=== PATIENT | female | born 1970 | race Caucasian/White ===

== ENCOUNTER 2018-07-10 13:21 | Emergency (ER) | payer OTHER ==
[~2018-07-10] VITALS: Ht 172.7 cm; Wt 102.1 kg
[2018-07-10 16:13] LABS: ABSOLUTE NEUTROPHILS 4.4 thou/uL (1.4-8.2); BASOPHILS 0.7 % (0.0-2.0); EOSINOPHILS 3.1 % (0.0-3.0); HEMATOCRIT 32.3 % (37.0-47.0); HEMOGLOBIN 11.1 gm/dL (12.0-15.0); LYMPHOCYTES 31.1 % (24.0-44.0); MCH 31.3 pg (26.0-34.0); MCHC 34.4 g/dL (28.0-37.0); MONOCYTES 8.2 % (1.0-8.0); PLATELET COUNT 253 thou/uL (150-400); POLYS 56.9 % (36.0-66.0); RBC 3.55 mil/uL (4.20-5.00); RDW 13.3 % (10.5-14.5); WBC 7.8 thou/uL (4.0-11.0)
[2018-07-10 16:22] LABS: CALCIUM 9.2 mg/dL (8.5-10.1); CREATININE 1.4 mg/dL (0.6-1.0)
[2018-07-10 16:29] LABS: ALBUMIN 3.3 g/dL (3.4-5.0); TOTAL BILIRUBIN 0.1 mg/dL (<0.1-1.0); TOTAL PROTEIN 6.5 g/dL (6.4-8.2)
[2018-07-10] MEDS ORDERED: ZANTAC 150MG T150 MG PO (16:32)
[2018-07-10] MEDS ORDERED: TRAMADOL 50 MG50 MG PO (16:33)
[2018-07-10] MEDS ORDERED: LOPERAMIDE 2 MG2 M1 PO (16:33)
[2018-07-10] MEDS ORDERED: TRAZODONE HCL100 MG PO (16:33)
[2018-07-10] MEDS ORDERED: PHENERGAN 25 MG25 M1 PO (16:34)
[2018-07-10] MEDS ORDERED: ROXICODONE5 M2 PO (17:55)
[2018-07-10 18:25] VITALS: BP 160/104
== END 2018-07-10 20:24 | disposition home or self-care (01) ==
LOC: ER 13:21
PROVIDERS: Emergency Medicine
DX: G89.29 Other chronic pain (principal); M54.5 Low back pain; N13.30 Unspecified hydronephrosis; E66.01 Morbid (severe) obesity due to excess calories; I10 Essential (primary) hypertension; E11.9 Type 2 diabetes mellitus without complications; G47.9 Sleep disorder, unspecified; F17.210 Nicotine dependence, cigarettes, uncomplicated; Z68.34 Body mass index [BMI] 34.0-34.9, adult; Z85.3 Personal history of malignant neoplasm of breast; Z88.6 Allergy status to analgesic agent; Z88.8 Allergy status to other drugs, medicaments and biological substances

== ENCOUNTER 2018-12-11 17:14 | Emergency (ER) | payer OTHER ==
[~2018-12-11] VITALS: Ht 162.6 cm; Wt 113.4 kg
[~2018-12-11 17:14] MED LIST: LOPERAMIDE 2 MG2 M1 PO; PHENERGAN 25 MG25 M1 PO; ROXICODONE5 M2 PO; TRAMADOL 50 MG50 MG PO; TRAZODONE HCL100 MG PO; ZANTAC 150MG T150 MG PO
[2018-12-11 17:16] VITALS: BP 136/77
[2018-12-11] MEDS ORDERED: ALL DAY ALLERGY10 M3 PO (17:25)
[2018-12-11] MEDS ORDERED: LIPITOR 20 MG T20 M1 PO (17:25)
[2018-12-11] MEDS ORDERED: NORVASC5 MG PO (17:25)
[2018-12-11] MEDS ORDERED: COLACE100 MG PO (17:26)
[2018-12-11] MEDS ORDERED: FEOSOL325 M1 PO (17:26)
[2018-12-11] MEDS ORDERED: PROZAC20 MG PO (17:26)
[2018-12-11] MEDS ORDERED: COZAAR 25 MG TA25 M1 PO (17:27)
[2018-12-11] MEDS ORDERED: FLONASE 0.05%50 MCG NASAL (17:27)
[2018-12-11] MEDS ORDERED: NEURONTIN 300300 M1 PO (17:27)
[2018-12-11] MEDS ORDERED: ONDANSETRON HCL4 M2 PO (17:28)
== END 2018-12-11 17:45 | disposition home or self-care (01) ==
LOC: ER 17:14
DX: L73.9 Follicular disorder, unspecified (principal); I10 Essential (primary) hypertension; E11.9 Type 2 diabetes mellitus without complications; G89.29 Other chronic pain; M54.9 Dorsalgia, unspecified; F17.210 Nicotine dependence, cigarettes, uncomplicated; Z85.3 Personal history of malignant neoplasm of breast; Z90.10 Acquired absence of unspecified breast and nipple; Z88.6 Allergy status to analgesic agent

== ENCOUNTER 2018-12-27 17:08 | Emergency (ER) | payer OTHER ==
[~2018-12-27] VITALS: Ht 162.6 cm; Wt 113.4 kg
[~2018-12-27 17:08] MED LIST changes: +ALL DAY ALLERGY10 M3 PO; +COLACE100 MG PO; +COZAAR 25 MG TA25 M1 PO; +FEOSOL325 M1 PO; +FLONASE 0.05%50 MCG NASAL; +LIPITOR 20 MG T20 M1 PO; +NEURONTIN 300300 M1 PO; +NORVASC5 MG PO; +ONDANSETRON HCL4 M2 PO; +PROZAC20 MG PO
[2018-12-27 19:06] LABS: URINE BILIRUBIN NEGATIVE (Negative); URINE BLOOD NEGATIVE (Negative); URINE CLARITY CLEAR; URINE COLOR YELLOW; URINE GLUCOSE-RANDOM* NEGATIVE (Negative); URINE KETONES NEGATIVE (Negative); URINE LEUKOCYTES-REFLEX NEGATIVE (Negative); URINE NITRITE-REFLEX NEGATIVE (Negative); URINE PROTEIN (DIPSTICK) NEGATIVE (Negative); URINE SPECIFIC GRAVITY 1.015 (1.005-1.035); URINE UROBILINOGEN 0.2 E.U./dl (0.2-1.0)
[2018-12-27 20:28] VITALS: BP 123/79
== END 2018-12-27 20:46 | disposition home or self-care (01) ==
LOC: ER 17:08
PROVIDERS: Emergency Medicine
DX: M25.512 Pain in left shoulder (principal); G89.29 Other chronic pain; M54.5 Low back pain; I10 Essential (primary) hypertension; E11.9 Type 2 diabetes mellitus without complications; F17.210 Nicotine dependence, cigarettes, uncomplicated; Z85.3 Personal history of malignant neoplasm of breast; Z90.10 Acquired absence of unspecified breast and nipple; Z88.6 Allergy status to analgesic agent; Z88.8 Allergy status to other drugs, medicaments and biological substances

== ENCOUNTER 2019-01-01 14:38 | Emergency (ER) | payer OTHER ==
[~2019-01-01] VITALS: Ht 162.6 cm; Wt 113.4 kg
[2019-01-01 15:29] LABS: ABSOLUTE NEUTROPHILS 5.8 thou/uL (1.4-8.2); BASOPHILS 1.3 % (0.0-2.0); EOSINOPHILS 1.4 % (0.0-3.0); HEMATOCRIT 36.1 % (37.0-47.0); HEMOGLOBIN 11.9 gm/dL (12.0-15.0); LYMPHOCYTES 26.5 % (24.0-44.0); MCH 30.2 pg (26.0-34.0); MCV 91.7 fL (80.0-100.0); MONOCYTES 8.3 % (1.0-8.0); PLATELET COUNT 286 thou/uL (150-400); POLYS 62.5 % (36.0-66.0); RBC 3.93 mil/uL (4.20-5.00); RDW 12.8 % (10.5-14.5); WBC 9.2 thou/uL (4.0-11.0)
[2019-01-01 15:37] LABS: ANION GAP 7 mmol/L (7-16); BUN 19 mg/dL (7-18); CALCIUM 9.6 mg/dL (8.5-10.1); CHLORIDE 100 mmol/L (98-107); CO2 28 mmol/L (21-32); CREATININE 1.5 mg/dL (0.6-1.0); GLUCOSE 124 mg/dL (74-106); POTASSIUM 4.3 mmol/L (3.5-5.1); SODIUM 135 mmol/L (136-145)
[2019-01-01 15:47] LABS: ALBUMIN 3.4 g/dL (3.4-5.0); SGOT 20 U/L (15-37); SGPT 24 U/L (30-65); TOTAL BILIRUBIN 0.3 mg/dL (<0.1-1.0); TOTAL PROTEIN 6.9 g/dL (6.4-8.2); TROPONIN-I <0.06 ng/mL (<0.06)
[2019-01-01] MEDS ORDERED: TRAMADOL 50 MG50 MG PO (19:08)
[2019-01-01 19:42] VITALS: BP 135/79
--- NOTE | 2019-01-03 08:31 | EKG ---
[place] [address] [employer] [place] [address] ELECTROCARDIOGRAM REPORT Name: LISA ISRAEL Room #: DEP ESTEFANÍA Cage#: [id number] Admission: 01/01/19 Attend Phys: Discharge: 01/01/19 Date of : 74 Report #: [id number] THIS REPORT FOR: //name// [facility] ED Test Date: 2019-01-01 Test Time: 14:45:33 Pat Name: LISA ISRAEL Department: Room: Gender: F Groundskeeper Porter: : 1970 Requested By: Gary Dillon Order Number: [id number] MD: Bertrand Hinkle Measurements Intervals [place] Rate: 92 P: 40 IA: 141 QRS: 41 QRSD: 96 T: 43 QT: 361 QTc: 447 Interpretive Statements Sinus rhythm Abnormal inferior Q waves Baseline wander in lead(s) I,II,aVR No previous ECG available for comparison Electronically Signed On 01-03-2019 8:31:10 CDT by Bertrand Hinkle [email or web address] <ELECTRONICALLY SIGNED> By: Bertrand Hinkle MD 01/03/19 0831 1445 1445 Bertrand Hinkle MD /MICHELLE
== END 2019-01-01 19:42 | disposition home or self-care (01) ==
LOC: ER 14:38
PROVIDERS: Physician Assistant
DX: R07.89 Other chest pain (principal); R19.7 Diarrhea, unspecified; I10 Essential (primary) hypertension; E11.9 Type 2 diabetes mellitus without complications; G89.29 Other chronic pain; M54.9 Dorsalgia, unspecified; F17.210 Nicotine dependence, cigarettes, uncomplicated; Z85.3 Personal history of malignant neoplasm of breast; Z90.12 Acquired absence of left breast and nipple; Z88.6 Allergy status to analgesic agent; Z88.8 Allergy status to other drugs, medicaments and biological substances

== ENCOUNTER 2019-01-16 14:38 | Emergency (ER) | payer OTHER ==
[2019-01-16] MEDS ORDERED: NORCO 5-325 TA1 EAC1 PO (16:09)
[2019-01-16 16:22] VITALS: BP 126/93
== END 2019-01-16 17:12 | disposition home or self-care (01) ==
LOC: ER 14:38
DX: M25.512 Pain in left shoulder (principal); R07.89 Other chest pain; M79.671 Pain in right foot; G89.29 Other chronic pain; M54.9 Dorsalgia, unspecified; I10 Essential (primary) hypertension; E11.9 Type 2 diabetes mellitus without complications; F17.210 Nicotine dependence, cigarettes, uncomplicated; Z90.10 Acquired absence of unspecified breast and nipple; Z85.3 Personal history of malignant neoplasm of breast; Z88.6 Allergy status to analgesic agent

== ENCOUNTER 2019-02-07 17:04 | Emergency (ER) | payer OTHER ==
[~2019-02-07] VITALS: Ht 162.6 cm; Wt 113.4 kg
[~2019-02-07 17:04] MED LIST changes: +NORCO 5-325 TA1 EAC1 PO
[2019-02-07 19:45] VITALS: BP 155/87
== END 2019-02-07 19:47 | disposition home or self-care (01) ==
LOC: ER 17:04
DX: M79.651 Pain in right thigh (principal); M79.604 Pain in right leg; I10 Essential (primary) hypertension; E11.9 Type 2 diabetes mellitus without complications; G89.29 Other chronic pain; M54.9 Dorsalgia, unspecified; F17.210 Nicotine dependence, cigarettes, uncomplicated; Z85.3 Personal history of malignant neoplasm of breast; Z90.10 Acquired absence of unspecified breast and nipple; Z88.6 Allergy status to analgesic agent; Z88.8 Allergy status to other drugs, medicaments and biological substances

== ENCOUNTER 2019-02-24 19:25 | Emergency (ER) | payer OTHER ==
[~2019-02-24] VITALS: Ht 162.6 cm; Wt 113.4 kg
[2019-02-24] MEDS ORDERED: VOLTAREN GEL 1100 G1 TOP (19:38)
[2019-02-24] MEDS ORDERED: LIDOCAINE35.44 GM TOP (19:39)
[2019-02-24] MEDS ORDERED: TIZANIDINE HCL4 M1 PO (19:40)
[2019-02-24 20:12] LABS: ABSOLUTE NEUTROPHILS 5.8 thou/uL (1.4-8.2); BASOPHILS 0.9 % (0.0-2.0); HEMATOCRIT 37.2 % (37.0-47.0); HEMOGLOBIN 12.4 gm/dL (12.0-15.0); MCH 30.8 pg (26.0-34.0); MCHC 33.5 g/dL (28.0-37.0); MONOCYTES 6.5 % (1.0-8.0); PLATELET COUNT 304 thou/uL (150-400); POLYS 60.6 % (36.0-66.0); RBC 4.04 mil/uL (4.20-5.00); RDW 12.9 % (10.5-14.5); WBC 9.6 thou/uL (4.0-11.0)
[2019-02-24 20:24] LABS: ANION GAP 9 mmol/L (7-16); BUN 16 mg/dL (7-18); CALCIUM 9.3 mg/dL (8.5-10.1); CHLORIDE 100 mmol/L (98-107); CO2 29 mmol/L (21-32); CREATININE 1.5 mg/dL (0.6-1.0); GLUCOSE 131 mg/dL (74-106); POTASSIUM 3.7 mmol/L (3.5-5.1); SODIUM 138 mmol/L (136-145)
[2019-02-24 20:30] LABS: ALBUMIN 3.6 g/dL (3.4-5.0); DIRECT BILIRUBIN < 0.1 mg/dL (<0.1-0.2); SGOT 19 U/L (15-37); SGPT 35 U/L (30-65); TOTAL BILIRUBIN 0.3 mg/dL (<0.1-1.0); TOTAL PROTEIN 7.4 g/dL (6.4-8.2)
[2019-02-24 21:08] VITALS: BP 106/57
== END 2019-02-24 21:08 | disposition home or self-care (01) ==
LOC: ER 19:25
PROVIDERS: Emergency Medicine
DX: G89.29 Other chronic pain (principal); M25.551 Pain in right hip; R19.7 Diarrhea, unspecified; I10 Essential (primary) hypertension; E11.9 Type 2 diabetes mellitus without complications; M54.89 Other dorsalgia; F17.210 Nicotine dependence, cigarettes, uncomplicated; Z85.3 Personal history of malignant neoplasm of breast; Z88.6 Allergy status to analgesic agent; Z88.8 Allergy status to other drugs, medicaments and biological substances